=== PATIENT | female | born 1940 | race Caucasian/White ===

== ENCOUNTER 2017-09-23 14:06 | Observation (INO) ==
[2017-09-23] MEDS ORDERED: Aspirin 81 MG TAB.CHEW PO ONE (14:11)
--- NOTE | 2017-09-23 14:32 | Emergency Department Note ---
Disposition Clinical Impression: Chest pain Qualifiers: Chest pain type: unspecified Qualified Code(s): R07.9 - Chest pain, unspecified Disposition: Admitted As Inpatient Condition: Good Referrals: Sherrell Gamez CNP [Primary Care Provider] - Forms: ED Satisfaction Letter General Adult HPI - General Chief complaint: ED Arrhythmia/Palpitations Stated complaint: chest pain Time Seen by Provider: 09/23/17 14:10 Source: EMS Limitations: no limitations Nursing Notes Reviewed: Yes Vital Signs Reviewed: Yes - History of Present Illness HPI Narrative: Patient presents for evaluation of chest pain and palpitations. Patient states she is having down the road when she developed palpitations in her chest. Patient states she has felt like her heart was beating hard. She describes pressure in the center of her chest. She does not have any specific aggravating or alleviating factors. Patient has been resting in a cot without significant improvement in her symptoms. She has hypertension. Patient has not had any recent cardiac workup. Patient allergy to aspirin is upset stomach. She did take aspirin if she eats food. Aspirin was given in the emergency department as well as nitroglycerin. Pain Scale: 6 - Related Data Home Medications Medication Instructions Recorded Confirmed Lisinopril 02/25/15 Previous Rx's Medication Instructions Recorded Phenazopyridine HCl [Pyridium] 200 mg PO TIDAC #6 tab 02/25/15 Sulfamethoxazole/Trimeth DS 1 each PO BID #14 tablet 02/25/15 [Bactrim DS] Allergies Allergy/AdvReac Type Severity Reaction Status Date / Time codeine AdvReac See Verified 12/02/14 09:51 Comments prednisone AdvReac See Verified 12/02/14 09:51 Comments Dyizpba-Tku-Tck Reductase AdvReac See Verified 12/02/14 09:51 Inhibitor Comments [Statins] Review of Systems: CONSTITUTIONAL: No weight loss, fever, chills, weakness or fatigue. HEENT: Eyes: No visual changes. Ears, Nose, Throat: No hearing loss, difficulty talking or unable to swallow. SKIN: No rash or itching. CARDIOVASCULAR: No chest pain and palpitations RESPIRATORY: No shortness of breath, cough or sputum. GASTROINTESTINAL: No anorexia, nausea, vomiting or diarrhea. No abdominal pain or blood. GENITOURINARY: No burning on urination or hematuria. NEUROLOGICAL: No headache, dizziness, syncope, paralysis, ataxia, numbness or tingling in the extremities. No change in bowel or bladder control. MUSCULOSKELETAL: No muscle pain, back pain, joint pain or stiffness. Past Medical History - Past Medical History Medical history: Reports: non-contributory, hypertension, migraine Psychiatric history: Reports: no psych history - Social History Smoking Status: Never smoker Smokeless Tobacco Status: No Alcohol use: Reports: none Drug use: Reports: none Physical Exam General: Well appearing, nontoxic, no acute distress Head: Normocephalic Atraumatic Eyes: PERRL, EOMI ENT: Airway patent, no stridor Neck: supple, no meningismus Chest: Lungs clear to auscultation bilateral Cardiac: Regular rate and rhythm, no murmurs, rubs or gallops Abdomen: soft, nontender, nondistended; no guarding, rebound, or tenderness to percussion Musculoskeletal: Calves symmetric, nontender, no palpable cord Skin: No rash, normal skin tone Neuro: Alert and Oriented to person, place, and time; No focal deficit - General Limitations: no limitations General appearance: alert Course - Reevaluation(s) Reevaluation #1: Patient with mild improvement with pain with nitroglycerin. EKG and troponin are normal. Patient will given Nitropaste as well as Tylenol and reevaluated. Patient will be admitted to the hospital service for further evaluation. - Consultations Consultation #1: Discussed with hospitalist. Patient accepted for admission. Vital Signs Temperature 98.2 F 09/23/17 14:10 Pulse Rate 84 09/23/17 14:10 Respiratory Rate 16 09/23/17 14:10 Blood Pressure 167/82 09/23/17 14:10 O2 Sat by Pulse Oximetry 96 09/23/17 14:10 Temperature 98.2 F 09/23/17 14:10 Pulse Rate 85 09/23/17 15:13 Respiratory Rate 16 09/23/17 15:13 Blood Pressure 148/85 09/23/17 15:13 O2 Sat by Pulse Oximetry 97 09/23/17 14:56 Oxygen Delivery Oxygen Delivery Room Air Medical Decision Making - Medical Records Medical records reviewed: Yes I reviewed the patient's medical records. - Lab Data Lab results reviewed: Yes I reviewed the patient's lab results. Result diagrams: 09/23/17 14:26 09/23/17 14:26 Lab Results 07/12/0309/23/17 09/23/17 Range/Units 14:26 14:26 14:26 WBC 4.7 (4.3-11.1) K/mcL RBC 4.37 (3.82-4.97) M/mcL Hgb 13.3 (11.5-15.4) g/dL Hct 39.7 (35.3-44.9) % MCV 90.8 (83.0-100.0) fL MCH 30.4 (28.0-33.3) pg MCHC 33.5 (31.6-35.5) g/dL RDW 12.9 (11.5-14.5) % Plt Count 185 (140-400) K/mcL MPV 10.1 (9.4-12.4) fL Immature Gran % 0.2 (0-4) % Seg Neutrophils % 69.1 % Lymphocytes % 17.4 % Monocytes % 10.3 % Eosinophils % 2.1 % Basophils % 0.9 % Neutrophils # 3.2 (1.6-8.9) K/mcL Lymphocytes # 0.8 (0.6-4.6) K/mcL Monocytes # 0.5 (0.0-1.3) K/mcL Eosinophils # 0.1 (0.0-0.6) K/mcL Basophils # 0.0 (0.0-0.2) K/mcL PT 11.0 (9.4-12.1) Seconds INR 1.0 APTT 28.6 (26.0-36.0) Seconds Sodium (136-145) mEq/L Potassium (3.5-5.1) mEq/L Chloride (98-107) mEq/L Carbon Dioxide (23-29) mEq/L BUN (8-23) mg/dL Creatinine (0.60-1.20) mg/dL Est GFR ( Amer) (> 60) Est GFR (Non-Af Amer) (> 60) BUN/Creatinine Ratio (6-26) Glucose (70-105) mg/dL Calculated Osmolality (280-300) Calcium (8.6-10.3) mg/dL Magnesium (1.6-2.6) mg/dL Troponin I (< 0.04) ng/mL B-Natriuretic Peptide 35 (Less than 100) pg/mL TSH (0.340-5.600) mcIU/mL 09/23/17 Range/Units 14:26 WBC (4.3-11.1) K/mcL RBC (3.82-4.97) M/mcL Hgb (11.5-15.4) g/dL Hct (35.3-44.9) % MCV (83.0-100.0) fL MCH (28.0-33.3) pg MCHC (31.6-35.5) g/dL RDW (11.5-14.5) % Plt Count (140-400) K/mcL MPV (9.4-12.4) fL Immature Gran % (0-4) % Seg Neutrophils % % Lymphocytes % % Monocytes % % Eosinophils % % Basophils % % Neutrophils # (1.6-8.9) K/mcL Lymphocytes # (0.6-4.6) K/mcL Monocytes # (0.0-1.3) K/mcL Eosinophils # (0.0-0.6) K/mcL Basophils # (0.0-0.2) K/mcL PT (9.4-12.1) Seconds INR APTT (26.0-36.0) Seconds Sodium 139 (136-145) mEq/L Potassium 4.5 (3.5-5.1) mEq/L Chloride 107 (98-107) mEq/L Carbon Dioxide 26 (23-29) mEq/L BUN 16 (8-23) mg/dL Creatinine 0.80 (0.60-1.20) mg/dL Est GFR ( Amer) > 60 (> 60) Est GFR (Non-Af Amer) > 60 (> 60) BUN/Creatinine Ratio 20 (6-26) Glucose 107 H (70-105) mg/dL Calculated Osmolality 290 (280-300) Calcium 9.3 (8.6-10.3) mg/dL Magnesium 2.2 (1.6-2.6) mg/dL Troponin I < 0.03 (< 0.04) ng/mL B-Natriuretic Peptide (Less than 100) pg/mL TSH 1.089 (0.340-5.600) mcIU/mL - Radiology Data Radiology results reviewed: Yes I reviewed the patient's radiology results. - EKG Data EKG #1 EKG attestation: Yes I reviewed and interpreted this EKG. EKG results narrative: EKG shows sinus rhythm with ventricular rate of 76. SD interval 142. QRS 90. QTC 419. Patient has no ST elevations or depressions. No previous EKG for comparison.
[2017-09-23 14:39] LABS: Basophils % 0.9 %; Eosinophils # 0.1 K/mcL (0.0-0.6); Eosinophils % 2.1 %; Hematocrit 39.7 % (35.3-44.9); Hemoglobin 13.3 g/dL (11.5-15.4); Immature Granulocytes % 0.2 % (0-4); Lymphocytes # 0.8 K/mcL (0.6-4.6); Lymphocytes % 17.4 %; Mean Corpuscular HGB Conc 33.5 g/dL (31.6-35.5); Mean Corpuscular Hemoglobin 30.4 pg (28.0-33.3); Mean Corpuscular Volume 90.8 fL (83.0-100.0); Mean Platelet Volume 10.1 fL (9.4-12.4); Monocytes # 0.5 K/mcL (0.0-1.3); Monocytes % 10.3 %; Neutrophils # 3.2 K/mcL (1.6-8.9); Platelet Count 185 K/mcL (140-400); Red Blood Count 4.37 M/mcL (3.82-4.97); Red Cell Distribution Width 12.9 % (11.5-14.5); Segmented Neutrophils % 69.1 %
[2017-09-23 14:51] LABS: Activated Partial Thrombo Time 28.6 Seconds (26.0-36.0)
[2017-09-23] MEDS ORDERED: Nitroglycerin 0.4 MG TAB.SUBL SL PRN (14:58)
[2017-09-23 14:59] LABS: Troponin I < 0.03 ng/mL (< 0.04)
[2017-09-23 15:08] LABS: BUN/Creatinine Ratio 20 (6-26); Blood Urea Nitrogen 16 mg/dL (8-23); Calcium 9.3 mg/dL (8.6-10.3); Carbon Dioxide 26 mEq/L (23-29); Chloride 107 mEq/L (98-107); Glucose 107 mg/dL (70-105); Magnesium 2.2 mg/dL (1.6-2.6); Osmolality,Calculated 290 (280-300); Potassium 4.5 mEq/L (3.5-5.1); Sodium 139 mEq/L (136-145); eGFR For African Americans > 60 (> 60); eGFR For Non-African Americans > 60 (> 60)
[2017-09-23 15:13] LABS: Thyroid Stimulating Hormone 1.089 mcIU/mL (0.340-5.600)
[2017-09-23] MEDS ORDERED: Nitroglycerin 1 INCH/GM PACKET TP ONE (15:21)
--- NOTE | 2017-09-23 16:13 | Internal Med History&Physical ---
Date of Encounter: 09/23/17 Time of Encounter: 16:13 Internal Medicine - H&P: HPI Chief complaint: CP History of present illness: Ms. Moore is a 76 year old female presents for evaluation of chest pain and palpitations she felt as if her heart felt was beating hard associated with pressure-like midsternal chest pain with no radiation and no aggravating or alleviating factors. She has history of hypertension that as per her is very well controlled. Patient has not had any recent cardiac workup. She has no prior history of coronary artery disease. She also denies any prior history of similar episode of palpitations, she was evaluated by the ER staff and his troponin were negative and her EKG shows no significant ST-T wave changes, family at bedside with very concerned about her new onset palpitation as well as chest pain, the patient was admitted for further evaluation and management. Past Med Surg Social Fam HX - Past Medical History Medical history: non-contributory, hypertension, migraine Psychiatric history: no psych history - Social History Smoking Status: Never smoker Smokeless Tobacco Status: No Alcohol use: none Drug use: none - Family History Mother Living Status: Age at : 94 Cause of : cancer Father Living Status: Age at : 59 Cause of : gallstones into pancreas Internal Medicine - H&P: Meds Acetaminophen/Butalbital/Caffe [Fioricet] 1 each PO Q4H PRN 09/23/17 [History] Lisinopril 30 mg PO DAILY 09/23/17 [History] Montelukast [Singulair] 10 mg PO DAILY 09/23/17 [History] Omeprazole [PriLOSEC] 20 mg PO DAILY 09/23/17 [History] 3 Allergy/AdvReac Type Severity Reaction Status Date / Time codeine AdvReac See Verified 12/02/14 09:51 Comments prednisone AdvReac See Verified 12/02/14 09:51 Comments Wljpowa-Ixl-Cjc Reductase AdvReac See Verified 12/02/14 09:51 Inhibitor Comments [Statins] All Systems PM: A 10-system review of systems was performed and is negative for pertinent findings except as documented above in the HPI. - Constitutional Constitutional: no chills, no fever(s), no night sweats - Cardiovascular Cardiovascular ROS IM: chest pain, palpitations, no diaphoresis, no dyspnea, no lightheadedness, no syncope - Respiratory Respiratory: no cough, no dyspnea, no wheezing, no excessive phlegm production - Gastrointestinal Gastrointestinal: no abdominal pain, no diarrhea, no hematemesis, no hematochezia, no melena, no nausea, no vomiting - Neurological Neurological ROS: no confusion, no convulsions, no focal weakness, no numbness, no tingling, no tremor(s) - Constitutional Vitals: Temp Pulse Resp BP Pulse Ox 98.2 F 85 16 148/85 97 09/23/17 14:10 09/23/17 15:13 09/23/17 15:13 09/23/17 15:13 09/23/17 14:56 General appearance: Present: A&O X 3 - Head Head exam: Present: atraumatic, normocephalic - Neck Neck exam general surgery: Present: supple, trachea midline. Absent: lymphadenopathy - Respiratory Respiratory exam: Present: CTAB. Absent: accessory muscle use, rales, rhonchi, wheezes - Cardiovascular Cardiovascular exam: Present: RRR, +S1, +S2. Absent: diastolic murmur, gallop, rubs, systolic murmur - GI/Abdominal GI/Abdominal exam: Present: normal bowel sounds, soft, no peritoneal signs. Absent: distended, tenderness - Extremities Exam Extremities exam: Present: warm, radial pulses palpable and symmetrical. Absent : calf tenderness, cyanotic, pedal edema Internal Med - H&P Results - Labs CBC & Chem 7: 09/24/17 03:39 09/24/17 03:39 Labs: Short CBC 09/23/17 Range/Units 14:26 WBC 4.7 (4.3-11.1) K/mcL Hgb 13.3 (11.5-15.4) g/dL Hct 39.7 (35.3-44.9) % Plt Count 185 (140-400) K/mcL Neutrophils # 3.2 (1.6-8.9) K/mcL BMP 09/23/17 14:26 Sodium 139 Potassium 4.5 Chloride 107 Carbon Dioxide 26 BUN 16 Creatinine 0.80 Glucose 107 H Calcium 9.3 Cardiac Enzymes 09/23/17 Range/Units 14:26 Troponin I < 0.03 (< 0.04) ng/mL - Impressions ITS Impressions Chest X-Ray 09/23/17 14:11 IMPRESSION: No acute process. D/ / Carlos Bejarano MD / Carlos Bejarano MD Interpreting Provider: Carlos Bejarano MD - Assessment and plan (1) Chest pain Current Visit: Yes Status: Acute Assessment and plan: ASSESSMENT: - Chest pain DD *CAD *Muskuloskeletal CP - myofascial strain, costochondritis *GERD *Esophageal spasm PLAN: - cardiac enzymes x 2 q 8 hr - EKG now and in AM - ASA - O2 by NC to keep SpO2 greater than 92% - UA - Urine toxic screen - CBCD, BMP in AM - Fasting lipids - Tylenol 650 mg PO q 4-6 hr PRN headache - Home meds (check list) - Heparin 5000 U SQ BID - 2D Echo - Cardiology consult Qualifiers: Chest pain type: unspecified Qualified Code(s): R07.9 - Chest pain, unspecified (2) Palpitation Current Visit: Yes Status: Acute Assessment and plan: The patient reported that since her new onset palpitation, has no further episodes, will place patient on telemetry for monitoring and consult cardiology for further evaluation and management (3) Hypertension Current Visit: Yes Status: Acute Assessment and plan: Continue home medication and adjust regimen if indicated Qualifiers: Qualified Code(s): I10 - Essential (primary) hypertension (4) DVT prophylaxis Current Visit: Yes Status: Acute Assessment and plan: The patient is ambulatory we will place a SCDs - Time Spent With Patient Total time spent is greater than 50% in coordination of care (as documented) at patient's floor/unit and/or counseling patient:
[2017-09-23] MEDS ORDERED: Naloxone 0.4 MG/ML INJ IVP PRN (20:45)
[2017-09-23] MEDS ORDERED: Acetaminophen/Butalbital/CaffeineTABLET PO PRN (20:50)
[2017-09-23] MEDS: traMADol 50 MG TABLET PO PRN (22:06)
[2017-09-24] MEDS ORDERED: Metoclopramide 10 MG/2 ML VIAL IVP ONE (00:32)
[2017-09-24] MEDS: Acetaminophen 325 MG TABLET PO PRN ×2 (01:21→10:27)
[2017-09-24 04:35] LABS: Bilirubin,Urine Negative (Negative); Blood,Urine Negative (Negative); Clarity,Urine Clear (Clear); Color,Urine Yellow (Yellow); Glucose,Urine (UA) Normal (Normal); Ketones,Urine Negative (Negative); Leukocyte Esterase,Urine Moderate (Negative); Nitrite,Urine Negative (Negative); Protein,Urine Negative (Neg-Trace); Specific Gravity,Urine 1.026 (1.010-1.025); Urobilinogen,Urine Normal (Normal)
[2017-09-24] MEDS: traMADol 50 MG TABLET PO PRN (04:35)
[2017-09-24 04:38] LABS: Hyaline Casts,Urine Few per lpf (None-Few); Squamous Epithelial Cell,Urine Many per lpf (None-Few); WBC,Urine 15-30 per hpf (0-3)
[2017-09-24 04:50] LABS: Hematocrit 36.2 % (35.3-44.9); Hemoglobin 12.2 g/dL (11.5-15.4); Mean Corpuscular HGB Conc 33.7 g/dL (31.6-35.5); Mean Corpuscular Hemoglobin 31.2 pg (28.0-33.3); Mean Corpuscular Volume 92.6 fL (83.0-100.0); Mean Platelet Volume 10.7 fL (9.4-12.4); Platelet Count 169 K/mcL (140-400); Red Blood Count 3.91 M/mcL (3.82-4.97); Red Cell Distribution Width 12.9 % (11.5-14.5)
[2017-09-24 05:02] LABS: Prothrombin Time 11.3 Seconds (9.4-12.1)
[2017-09-24 05:04] LABS: Activated Partial Thrombo Time 27.8 Seconds (26.0-36.0)
[2017-09-24 05:14] LABS: Alanine Aminotransferase 13 Units/L (7-52); Albumin 3.7 g/dL (3.5-5.7); Albumin/Globulin Ratio 1.9 (1.1-2.2); Alkaline Phosphatase 59 Units/L (34-104); Aspartate Amino Transferase 15 Units/L (13-39); BUN/Creatinine Ratio 23 (6-26); Bilirubin,Total 0.4 mg/dL (0.3-1.0); Blood Urea Nitrogen 19 mg/dL (8-23); Calcium 8.9 mg/dL (8.6-10.3); Carbon Dioxide 26 mEq/L (23-29); Chloride 108 mEq/L (98-107); Chol/HDL Ratio 5.8 (0-4.9); Cholesterol 266 mg/dL (< 200); Glucose 75 mg/dL (70-105); HDL Cholesterol 46 mg/dL (40-59); LDL Cholesterol,Calculated 195 mg/dL (0-99); Magnesium 2.3 mg/dL (1.6-2.6); Osmolality,Calculated 287 (280-300); Phosphorous 3.6 mg/dL (2.7-4.5); Potassium 3.9 mEq/L (3.5-5.1); Sodium 138 mEq/L (136-145); Total Protein 5.7 g/dL (6.4-8.9); Triglycerides 126 mg/dL (< 150); eGFR For African Americans > 60 (> 60); eGFR For Non-African Americans > 60 (> 60)
[2017-09-24 05:19] LABS: Bacteria,Urine Few per hpf (None-Few); Mucus,Urine Many (Few); RBC,Urine 0-3 per hpf (0-3)
--- NOTE | 2017-09-24 07:29 | Electrocardiograph Report ---
[address] [place], [place] [address] Test Date: 2017-09-23 Pat Name: Jose Antonio Moore Department: 102 Room: 3B33 Gender: F [employer]: : [id number] Requested By: [id number] Order Number: [id number] Reading MD: Mick Ziegler Measurements Intervals [place] Rate: 76 P: 48 HI: 142 QRS: -33 QRSD: 90 T: 53 QT: 389 QTc: 419 Interpretive Statements SINUS RHYTHM MARKED LEFT AXIS DEVIATION LEFT VENTRICULAR HYPERTROPHY Electronically Signed On 09-24-2017 7:27:47 EDT by Mick Ziegler
[2017-09-24] MEDS: Ondansetron 4 MG/2 ML VIAL IVP PRN (09:31)
[2017-09-24] MEDS: Lisinopril 20 MG TABLET PO SCH (09:34)
--- NOTE | 2017-09-24 10:37 | Internal Med Progress Note ---
Date of Encounter: 09/25/17 Time of Encounter: 10:37 - Assessment and plan (1) Chest pain Current Visit: Yes Status: Acute Assessment and plan: No further episode of CP, Cardiac enzymes are negative. For stress test in AM. Qualifiers: Chest pain type: unspecified Qualified Code(s): R07.9 - Chest pain, unspecified (2) Palpitation Current Visit: Yes Status: Acute Assessment and plan: The patient reported that since her new onset palpitation, has no further episodes, continue telemetry for monitoring. Awaiting cardiology for further evaluation and management. (3) Hypertension Current Visit: Yes Status: Acute Assessment and plan: Continue home medication and adjust regimen if indicated Qualifiers: Hypertension type: essential hypertension Qualified Code(s): I10 - Essential (primary) hypertension (4) DVT prophylaxis Current Visit: Yes Status: Acute Assessment and plan: The patient is ambulatory we will place a SCDs - Time Spent With Patient Total time spent is greater than 50% in coordination of care (as documented) at patient's floor/unit and/or counseling patient: - Subjective Interval history: SHe is comfortable, denies CP and palpitation. - Constitutional Vitals: Temp Pulse Resp BP Pulse Ox 97.8 F 61 16 120/66 97 09/24/17 07:49 09/24/17 07:49 09/24/17 07:49 09/24/17 07:49 09/24/17 07:49 General appearance: Present: A&O X 3 - Head Head exam: Present: atraumatic, normocephalic - Neck Neck exam general surgery: Present: supple, trachea midline. Absent: lymphadenopathy - Respiratory Respiratory exam: Present: CTAB. Absent: accessory muscle use, rales, rhonchi, wheezes - Cardiovascular Cardiovascular exam: Present: RRR, +S1, +S2. Absent: diastolic murmur, gallop, rubs, systolic murmur - GI/Abdominal GI/Abdominal exam: Present: normal bowel sounds, soft, no peritoneal signs. Absent: distended, tenderness - Extremities Exam Extremities exam: Present: warm, radial pulses palpable and symmetrical. Absent : calf tenderness, cyanotic, pedal edema Internal Medicine: Result - Labs CBC & Chem 7: 09/24/17 03:39 09/24/17 03:39 Labs: Short CBC 09/24/17 Range/Units 03:39 WBC 5.2 (4.3-11.1) K/mcL Hgb 12.2 (11.5-15.4) g/dL Hct 36.2 (35.3-44.9) % Plt Count 169 (140-400) K/mcL BMP 09/24/17 03:39 Sodium 138 Potassium 3.9 Chloride 108 H Carbon Dioxide 26 BUN 19 Creatinine 0.82 Glucose 75 Calcium 8.9 Cardiac Enzymes 09/23/17 09/24/17 09/24/17 Range/Units 21:06 03:39 09:13 Troponin I < 0.03 < 0.03 < 0.03 (< 0.04) ng/mL Liver Function 09/24/17 Range/Units 03:39 Total Bilirubin 0.4 (0.3-1.0) mg/dL AST 15 (13-39) Units/L ALT 13 (7-52) Units/L Alkaline Phosphatase 59 (34-104) Units/L Albumin 3.7 (3.5-5.7) g/dL Urine 09/24/17 Range/Units 04:25 Urine Color Yellow (Yellow) Urine Clarity Clear (Clear) Urine pH 6.0 (5.0-8.0) pH Units Ur Specific [place] 1.026 H (1.010-1.025) Urine Protein Negative (Neg-Trace) mg/dL Urine Glucose (UA) Normal (Normal) mg/dL - ABG Interpretation ABG results: PT/INR, D-dimer PT 11.3 Seconds (9.4-12.1) 09/24/17 03:39 Consult Discharge Plan - Plan Referrals: Sherrell Gamez CNP [Primary Care Provider] - 09/30/17 10:35 am
--- NOTE | 2017-09-24 12:24 | Cardiology Consult Note ---
<Fortino Hoang R - Last Filed: 09/24/17 12:24> Date of Encounter: 09/24/17 Time of Encounter: 12:23 Assessment and Plan (1) Palpitation Current Visit: Yes Status: Acute Presented with acute onset of palpitations. EKGs sinus rhythm. EKG today does show diffuse ST flattening. Troponins negative. Denies chest pain. States she had an episode of chest pain 1-2 years ago with negative stress test at [facility] at that time. Records requested. TTE ordered, not yet completed. Telemetry reviewed--12 hr AVG HR 59, SR, no signficant pauses or arrhythmias noted. Discussed and reviewed with Dr. Tariq, recommends stress test in AM--will order. Further recs pending echo and stress results. (2) Hypertension Current Visit: Yes Status: Acute Well controlled on Lisinopril. Qualifiers: Hypertension type: essential hypertension Qualified Code(s): I10 - Essential (primary) hypertension Discussion w patient/family: The assessment and plan as outlined above was discussed with the patient and/or family members who expressed understanding and agreement. All questions were answered. Thank you for involving us in the care of your patient. Please call with any questions. I will discuss all the above with Dr. Tariq and make changes as necessary. History of Present Illness Consult date: 09/24/17 Requesting physician: Najma Dennison Consult reason: chest pain, palpitations Chief complaint: palpitations History of present illness: Ms. Moore is a 76 year old female with PMH of HTN that presented to ED for acute onset of palpitations. She reports this occurred while driving. I specifically asked pt about any chest pain and she denied any, states only palpitations. She states she had an episode of chest pain 1-2 years ago and had a stress test at [facility] at that time, reportedly negative. EKGs reviewed, SR. Troponins negative. She states after she was given nitro that her palpitations resolved, no recurrence. Currently has headache and nausea. Cardiology consulted for further recs. TTE has been ordered, not yet completed. She denies fatigue, dyspnea, chest pain or LE edema. Past Med Surg Social Fam HX - Past Medical History Medical history: non-contributory, hypertension, migraine Psychiatric history: no psych history - Past Surgical History Surgical History: hysterectomy Additional surgical history: right rotater cuff x2 - Social History Smoking Status: Never smoker Smokeless Tobacco Status: No Alcohol use: none Drug use: none - Family History Mother Living Status: Age at : 94 Cause of : cancer Father Living Status: Age at : 59 Cause of : gallstones into pancreas Medications and Allergies Acetaminophen/Butalbital/Caffe [Fioricet] 1 each PO Q4H PRN 09/23/17 [History] Lisinopril 30 mg PO DAILY 09/23/17 [History] Montelukast [Singulair] 10 mg PO DAILY 09/23/17 [History] Omeprazole [PriLOSEC] 20 mg PO DAILY 09/23/17 [History] 3 Allergy/AdvReac Type Severity Reaction Status Date / Time codeine AdvReac See Verified 12/02/14 09:51 Comments prednisone AdvReac See Verified 12/02/14 09:51 Comments Hthlkur-Fpp-Kfe Reductase AdvReac See Verified 12/02/14 09:51 Inhibitor Comments [Statins] All Systems Review: The remainder of the systems were reviewed and are negative - Cardiovascular Cardiovascular: as per HPI, palpitations Physical Examination Vital Signs, Last 4 Hours Temp Pulse Resp BP Pulse Ox 09/24/17 11:35 97.5 F L 64 16 143/75 96 Vital Signs Temp Pulse Resp BP Pulse Ox 09/24/17 11:35 97.5 F L 64 16 143/75 96 09/24/17 07:49 97.8 F 61 16 120/66 97 09/24/17 03:37 97.8 F 61 14 116/68 95 09/23/17 23:10 97.8 F 80 15 118/70 96 09/23/17 20:36 98.2 F 66 14 123/73 97 09/23/17 19:09 66 12 98/62 93 09/23/17 16:30 71 16 119/75 95 09/23/17 15:13 85 16 148/85 09/23/17 14:56 97 09/23/17 14:10 98.2 F 84 16 167/82 96 Intake and Output 09/23/17 09/24/17 09/24/17 23:59 07:59 15:59 Other: Meal Breakfast Percent of Meal Consumed 0% Weight 66.9 kg 71.1 kg Patient Weight 09/24/17 23:59 Weight 71.1 kg General: Conversant, No Apparent Distress HEENT: Atraumatic, Normocephaly, Mucus Membranes Moist Neck: No JVD, Normal carotid pulses Cardiac: Reg Rate and Rhythm, Normal S1 and S2, No Murmur Lungs: Normal Breath Sounds, No Wheeze, Rales, Rhonchi Neuro: Alert and responsive, No focal deficits noted Abdomen: Soft, Non-Tender Skin: No rashes noted on visualized skin Musculoskeletal: No Chest Wall Tenderness Extremities: No Clubbing, No Cyanosis, No Edema, Normal Pulses Results 09/24/17 03:39 09/24/17 03:39 Lab Results 09/23/17 09/24/17 09/24/17 21:06 03:39 03:39 WBC 5.2 Hgb 12.2 Hct 36.2 Plt Count 169 INR APTT Sodium Potassium Chloride Carbon Dioxide BUN Creatinine Glucose Calcium Magnesium Total Bilirubin AST ALT Alkaline Phosphatase Troponin I < 0.03 < 0.03 B-Natriuretic Peptide 09/24/17 09/24/17 09/24/17 03:39 03:39 03:39 WBC Hgb Hct Plt Count INR 1.0 APTT 27.8 Sodium 138 Potassium 3.9 Chloride 108 H Carbon Dioxide 26 BUN 19 Creatinine 0.82 Glucose 75 Calcium 8.9 Magnesium 2.3 Total Bilirubin 0.4 AST 15 ALT 13 Alkaline Phosphatase 59 Troponin I B-Natriuretic Peptide 26 09/24/17 09:13 WBC Hgb Hct Plt Count INR APTT Sodium Potassium Chloride Carbon Dioxide BUN Creatinine Glucose Calcium Magnesium Total Bilirubin AST ALT Alkaline Phosphatase Troponin I < 0.03 B-Natriuretic Peptide Short CBC 09/24/17 09/23/17 Range/Units 03:39 14:26 WBC 5.2 4.7 (4.3-11.1) K/mcL Hgb 12.2 13.3 (11.5-15.4) g/dL Hct 36.2 39.7 (35.3-44.9) % Plt Count 169 185 (140-400) K/mcL Neutrophils # 3.2 (1.6-8.9) K/mcL BMP 09/24/17 09/23/17 Range/Units 03:39 14:26 Sodium 138 139 (136-145) mEq/L Potassium 3.9 4.5 (3.5-5.1) mEq/L Chloride 108 H 107 (98-107) mEq/L Carbon Dioxide 26 26 (23-29) mEq/L BUN 19 16 (8-23) mg/dL Creatinine 0.82 0.80 (0.60-1.20) mg/dL Glucose 75 107 H (70-105) mg/dL Calcium 8.9 9.3 (8.6-10.3) mg/dL Cardiac Enzymes 09/24/17 09/24/17 09/23/17 Range/Units 09:13 03:39 21:06 Troponin I < 0.03 < 0.03 < 0.03 (< 0.04) ng/mL 09/23/17 Range/Units 14:26 Troponin I < 0.03 (< 0.04) ng/mL Liver Function 09/24/17 Range/Units 03:39 Total Bilirubin 0.4 (0.3-1.0) mg/dL AST 15 (13-39) Units/L ALT 13 (7-52) Units/L Alkaline Phosphatase 59 (34-104) Units/L Albumin 3.7 (3.5-5.7) g/dL Urine 09/24/17 Range/Units 04:25 Urine Color Yellow (Yellow) Urine Clarity Clear (Clear) Urine pH 6.0 (5.0-8.0) pH Units Ur Specific [place] 1.026 H (1.010-1.025) Urine Protein Negative (Neg-Trace) mg/dL Urine Glucose (UA) Normal (Normal) mg/dL Impressions Chest X-Ray 09/23/17 14:11 IMPRESSION: No acute process. D/ / Carlos Bejarano MD / Carlos Bejarano MD Interpreting Provider: Carlos Bejarano MD Active Medications Acetaminophen (Tylenol) 650 mg PO Q6HR PRN PRN Reason: Mild Pain/Fever Stop: 03/25/18 20:46 Last Admin: 09/24/17 10:27 Dose: 650 mg Acetaminophen/Butalbital/Caffeine (Fioricet) 1 each PO Q4H PRN; Protocol PRN Reason: Migraine Headache Stop: 03/25/18 20:51 Last Admin: 09/24/17 12:12 Dose: 1 each Lisinopril (Zestril) 30 mg PO DAILY [facility] Stop: 03/26/18 09:01 Last Admin: 09/24/17 09:34 Dose: Not Given Montelukast Sodium (Singulair) 10 mg PO DAILY [facility] Stop: 03/26/18 09:01 Last Admin: 09/24/17 09:31 Dose: Not Given Naloxone HCl (Narcan) 0.4 mg IVP Q2MIN PRN PRN Reason: SEE COMMENTS Stop: 03/25/18 20:46 Nitroglycerin (Nitroglycerin) 0.4 mg SL Q5MIN PRN PRN Reason: Chest Pain Stop: 03/25/18 14:59 Last Admin: 09/23/17 15:05 Dose: 0.4 mg Omeprazole (Prilosec) 20 mg PO DAILY [facility] PRN Reason: Protocol Stop: 03/26/18 09:01 Last Admin: 09/24/17 09:30 Dose: Not Given Ondansetron HCl (Zofran) 4 mg IVP Q8HR PRN PRN Reason: Nausea And Vomiting Stop: 03/25/18 20:46 Last Admin: 09/24/17 09:31 Dose: 4 mg Tramadol HCl (Ultram) 50 mg PO Q6HR PRN PRN Reason: Moderate Pain Stop: 03/25/18 20:46 Last Admin: 09/24/17 04:35 Dose: 50 mg - EKG Interpretation EKG results cardiology: personally reviewed (SR), other (12 hr tele AVG HR 59, SR, no significant pauses or arrhythmias.) Consult Discharge Plan - Plan Referrals: Sherrell Gamez, [employer] [Primary Care Provider] - <Mariah Tariq - Last Filed: 09/24/17 14:19> Date of Encounter: 09/24/17 - Attending Attestation I have personally performed a face to face evaluation on this patient. I have reviewed and agree with the care plan. History and Exam by me shows: 76-year-old female presents to the emergency department with palpitations. She denies any chest pain has been seen in the past for similar episodes described as a fluttering in her chest. These episodes last a few seconds at a time however most recent episode continued and was persistent for follow-up. Time up until presenting to the emergency department. Mild ST changes on her EKG however no ectopy noted. With her EKG changes and her most recent stress test at an outside hospital almost 2 years ago it does seem reasonable to evaluate for ischemia with a chemical stress test. Assessment and Plan Discussion w patient/family: The assessment and plan as outlined above was discussed with the patient and/or family members who expressed understanding and agreement. All questions were answered. Thank you for involving us in the care of your patient. Please call with any questions. History of Present Illness History of present illness: Ms. Moore is a 76 year old female All Systems Review: The remainder of the systems were reviewed and are negative Physical Examination Vital Signs, Last 4 Hours Temp Pulse Resp BP Pulse Ox 09/24/17 11:35 97.5 F L 64 16 143/75 96 Results 09/24/17 03:39 09/24/17 03:39 Lab Results 09/23/17 09/24/17 09/24/17 21:06 03:39 03:39 WBC 5.2 Hgb 12.2 Hct 36.2 Plt Count 169 INR APTT Sodium Potassium Chloride Carbon Dioxide BUN Creatinine Glucose Calcium Magnesium Total Bilirubin AST ALT Alkaline Phosphatase Troponin I < 0.03 < 0.03 B-Natriuretic Peptide 09/24/17 09/24/17 09/24/17 03:39 03:39 03:39 WBC Hgb Hct Plt Count INR 1.0 APTT 27.8 Sodium 138 Potassium 3.9 Chloride 108 H Carbon Dioxide 26 BUN 19 Creatinine 0.82 Glucose 75 Calcium 8.9 Magnesium 2.3 Total Bilirubin 0.4 AST 15 ALT 13 Alkaline Phosphatase 59 Troponin I B-Natriuretic Peptide 26 09/24/17 09:13 WBC Hgb Hct Plt Count INR APTT Sodium Potassium Chloride Carbon Dioxide BUN Creatinine Glucose Calcium Magnesium Total Bilirubin AST ALT Alkaline Phosphatase Troponin I < 0.03 B-Natriuretic Peptide
[2017-09-25] MEDS: traMADol 50 MG TABLET PO PRN (03:55)
[2017-09-25] MEDS ORDERED: Regadenoson 0.4 MG/5 ML SYRINGE IVP ONE (05:27)
[2017-09-25] MEDS: Lisinopril 20 MG TABLET PO SCH (10:10)
[2017-09-25] MEDS: Ondansetron 4 MG/2 ML VIAL IVP PRN (10:11)
[2017-09-25 11:24] VITALS: BP 151/78
--- NOTE | 2017-09-25 13:19 | Cardiology Progress Note ---
Date of Encounter: 09/25/17 Time of Encounter: 13:16 Assessment and Plan (1) Palpitation Current Visit: Yes Status: Acute Presented with acute onset of palpitations. EKGs sinus rhythm. EKG yesterday showed diffuse ST flattening. Troponins negative. Telemetry reviewed--12 hr AVG HR 67, SR, no signficant pauses or arrhythmias noted. TTE resulted--LVEF 60-65%. Normal LV chamber size and function. Mild concentric left ventricular hypertrophy. Mild left ventricular diastolic dysfunction. Normal right ventricular structure and function. No evidence of pulmonary hypertension. No significant valvular dysfunction. Pharmacologic Nuclear stress test negative for ischemia or infarct. Gated EF >70 %. Pt denies recurrent palpitations. Denies chest pain. Cardiology signing off. Reconsult PRN. Can follow-up outpt with PCP. (2) Hypertension Current Visit: Yes Status: Acute Continue Lisinopril, adjust as necessary. Qualifiers: Hypertension type: essential hypertension Qualified Code(s): I10 - Essential (primary) hypertension Discussion w patient/family: The assessment and plan as outlined above was discussed with the patient and/or family members who expressed understanding and agreement. All questions were answered. Thank you for involving us in the care of your patient. Please call with any questions. I will discuss all the above with Dr. Tariq and make changes as necessary. Subjective Principal diagnosis: palpitations Interval history: Pt denies chest pain. Denies any recurrent palpitations. Denies dyspnea. Only complaint was n/v after stress test, now resolved. TTE EF preserved. Stress test negative for ischemia or infarct. Objective Vital Signs, Last 4 Hours Temp Pulse Resp BP Pulse Ox 09/25/17 11:24 97.6 F 61 18 151/78 98 09/25/17 09:29 97.8 F 69 18 153/81 98 Vital Signs Temp Pulse Resp BP Pulse Ox 09/25/17 11:24 97.6 F 61 18 151/78 98 09/25/17 09:29 97.8 F 69 18 153/81 98 09/25/17 02:27 98.5 F 73 14 130/77 97 09/24/17 22:55 97.7 F 71 14 125/74 96 09/24/17 15:29 97.5 F L 62 16 144/82 95 Intake and Output 09/24/17 09/25/1709/25/18 23:59 07:59 15:59 Output Total 400 / 400 Balance -400 / -400 Output: Urine 400 / 400 General: Conversant, No Apparent Distress HEENT: Atraumatic, Normocephaly, Mucus Membranes Moist Neck: No JVD, Normal carotid pulses Cardiac: Reg Rate and Rhythm, Normal S1 and S2, No Murmur Lungs: Normal Breath Sounds, No Wheeze, Rales, Rhonchi Neuro: Alert and responsive, No focal deficits noted Abdomen: Soft, Non-Tender Skin: No rashes noted on visualized skin Musculoskeletal: No Chest Wall Tenderness Extremities: No Clubbing, No Cyanosis, No Edema, Normal Pulses Results 09/24/17 03:39 09/24/17 03:39 Impressions Echocardiogram 09/24/17 02:25 Impressions: LVEF 60-65%. Normal LV chamber size and function. Mild concentric left ventricular hypertrophy. Mild left ventricular diastolic dysfunction. Normal right ventricular structure and function. No evidence of pulmonary hypertension. No significant valvular dysfunction. Left Ventricular Wall Motion: Rest Echo Findings All wall segments showed normal motion. Findings: Study Quality * Technically adequate exam. ECG Findings * Normal sinus rhythm. Left Ventricle * LVEF 60-65%. * Normal LV chamber size and function. * Mild concentric left ventricular hypertrophy. * Mild left ventricular diastolic dysfunction. Right Ventricle * Normal right ventricular structure and function. Left Atrium * Normal left atrial size. Right Atrium * Normal right atrial size. Aortic Valve * Trileaflet aortic valve. * Mildly sclerotic aortic valve leaflets. * Trace aortic regurgitation. * No aortic stenosis. Mitral Valve * Mild mitral annular calcification * No mitral regurgitation. * No mitral stenosis. Tricuspid Valve * Normal tricuspid valve structure and function. * Trace tricuspid regurgitation. * No evidence of pulmonary hypertension. Pulmonic Valve * Normal pulmonic valve structure and function. * No pulmonic regurgitation. Aorta * Normally sized aortic root. Pericardium * The pericardium appears normal. IVC * Normal IVC dimensions and inspiratory collapse. Pulmonary Artery * Normal visualized portions of the main pulmonary artery. - Imaging and Cardiology Stress Test: report reviewed Echo: report reviewed - EKG Interpretation EKG results cardiology: other (12 hr tele AVG HR 67, SR, no significant pauses or arrhythmias noted.) Consult Discharge Plan - Plan Referrals: Sherrell Gamez CNP [Primary Care Provider] - 09/30/17 10:35 am
--- NOTE | 2017-09-25 15:06 | Discharge Summary ---
- NOTES TO OUTPATIENT PROVIDER Notes to Outpatient Provider: ACS r/o; ruled out. denies every having any chest pain however did admit to palpitations. Palpitations have not returned throughout the admission. Echocardiogram, stress test, troponins all unremarkable, no studies pending Orders not resulted at time of discharge: Pending orders 09/25/17 07:00 NM milo perf SPECT multi [NM] Routine Date of Encounter: 09/25/17 Time of Encounter: 15:02 - Discharge Diagnosis (1) Palpitation Priority: Primary Status: Acute Assessment and Plan: Presented with palpitations Denies ever having any chest pain Underwent ACS rule out, ACS has been ruled out Palpitations resolved prior to admission and have not returned throughout stay No events on telemetry Echocardiogram grossly unremarkable Stress test negative for ischemia Serial Troponins negative Uneventful hospital course If palpitations return patient may benefit from Holter monitor Patient instructed to follow-up with PCP with 1-week of discharge. Additionally , she is instructed to return to the ED should her symptoms return and/or worsen. Patient verbalizes understanding denies any further questions at this time (2) Chest pain Priority: Primary Status: Acute Assessment and Plan: Denies ever having any chest pain Acute onset of palpitations EKG yesterday showing diffuse ST flattening TTE--LVEF 60-65% Normal LV chamber size and function. Mild concentric left ventricular hypertrophy. Mild left ventricular diastolic dysfunction. Normal right ventricular structure and function. No evidence of pulmonary hypertension. No significant valvular dysfunction. Pharmacologic Nuclear stress test negative for ischemia or infarct. Gated EF >70 %. Qualifiers: Chest pain type: unspecified Qualified Code(s): R07.9 - Chest pain, unspecified (3) Hypertension Priority: Secondary Status: Acute Assessment and Plan: Stable throughout stay, continue home anti-HTN medications at [facility] Qualifiers: Hypertension type: essential hypertension Qualified Code(s): I10 - Essential (primary) hypertension (4) DVT prophylaxis Priority: Secondary Status: Acute Hospital course: Ms. Moore is a 76 year old female Please see assessment and plan for hospital course Discharge discussed with: patient, nurse, area development consultant - Time Spent with Patient Total time spent providing and/or coordinating discharge services: Less than 30 minutes - Discharge Medications Home Medications: Acetaminophen/Butalbital/Caffe [Fioricet] 1 each PO Q4H PRN 09/23/17 [History] Lisinopril 30 mg PO DAILY 09/23/17 [History] Montelukast [Singulair] 10 mg PO DAILY 09/23/17 [History] Omeprazole [PriLOSEC] 20 mg PO DAILY 09/23/17 [History] Allergies/Adverse Reactions: 3 Allergy/AdvReac Type Severity Reaction Status Date / Time codeine AdvReac See Verified 12/02/14 09:51 Comments prednisone AdvReac See Verified 12/02/14 09:51 Comments Rpkvrdu-Vre-Hcp Reductase AdvReac See Verified 12/02/14 09:51 Inhibitor Comments [Statins] Date of admission: 09/23/17 18:58 Primary care physician: Sherrell Gamez CNP Consults: 09/24/17 02:25 Consult to Physician [CONS] Routine Consulting Provider: Chris Bhatia Reason for Consult: cp Call Completed: Yes Discharging clinician: Eddie Carrillo Anticipated date of discharge: 09/25/17 - Constitutional Vitals: Temp Pulse Resp BP Pulse Ox 97.6 F 61 18 151/78 98 09/25/17 11:24 09/25/17 11:24 09/25/17 11:24 09/25/17 11:24 09/25/17 11:24 General appearance: Present: A&O X 3 - Head Head exam: Present: atraumatic, normocephalic - Eye Eye exam: Present: PERRL, conjuntiva pink, sclera anicteric Pupils: Present: PERRL - Neck Neck exam general surgery: Present: supple, trachea midline. Absent: lymphadenopathy - Respiratory Respiratory exam: Present: CTAB. Absent: accessory muscle use, rales, rhonchi, wheezes - Cardiovascular Cardiovascular exam: Present: RRR, +S1, +S2. Absent: diastolic murmur, gallop, rubs, systolic murmur - GI/Abdominal GI/Abdominal exam: Present: normal bowel sounds, soft, no peritoneal signs. Absent: distended, tenderness - Extremities Exam Extremities exam: Present: warm, radial pulses palpable and symmetrical. Absent : calf tenderness, cyanotic, pedal edema - Neurological Exam Neurological exam: Present: CN II-XII intact, oriented X3, no focal deficits. Absent: pronater drift, facial droop, speech deficit - Skin Skin exam: Present: dry, intact - Patient Status Disposition: Home, Self-Care Condition: Good Functional capacity at discharge: independent ambulation Overall status at discharge: patient is back to baseline - Discharge Instructions Instructions: Chest Pain (DC) Follow Up With: Sherrell Gamez CNP [Primary Care Provider] - 09/30/17 10:35 am - Diet and Activity Activity: resume usual activities as tolerated Diet: advance to your usual diet
--- NOTE | 2017-09-26 06:35 | Electrocardiograph Report ---
[address] [place] [address] Test Date: 2017-09-24 Pat Name: Jose Antonio Moore Department: 113 Room: 3B33 Gender: F [employer]: : 1940 Requested By: Najma Dennison Order Number: [id number] Reading MD: Mick Ziegler Measurements Intervals Erwin Rate: 57 P: 43 LA: 177 QRS: -20 QRSD: 85 T: 79 QT: 423 QTc: 417 Interpretive Statements SINUS BRADYCARDIA MINIMAL VOLTAGE CRITERIA FOR LVH, CONSIDER NORMAL VARIANT Electronically Signed On 09-26-2017 6:33:56 EDT by Mick Ziegler
== END 2017-09-25 15:36 | disposition home or self-care (01) ==
LOC: 3BNU 14:06 → EMEROO 14:06 → 3BNU 20:02
PROVIDERS: ADMIT Internal Medicine Nephrology; ATTEND Internal Medicine Nephrology

== ENCOUNTER 2021-02-17 11:40 | Observation (INO) ==
[2021-02-17] MEDS ORDERED: Naloxone 0.4 MG/ML INJ IVP PRN (14:40)
[2021-02-17] MEDS ORDERED: Acetaminophen 325 MG TABLET PO PRN (14:40)
[2021-02-17] MEDS ORDERED: Ondansetron 4 MG/2 ML VIAL IVP PRN (14:40)
[2021-02-17] MEDS: *HR* Heparin 5,000 UNIT/ML VIAL SQ SCH (17:07)
[2021-02-17] MEDS: *HR* HYDROmorphone 2 MG TABLET PO PRN (17:07)
[2021-02-17] MEDS: Acetaminophen/Butalbital/CaffeineTABLET PO PRN (18:22)
[2021-02-18] MEDS: *HR* HYDROmorphone 2 MG TABLET PO PRN (00:33)
[2021-02-18 02:59] LABS: Basophils % 0.5 %; Eosinophils # 0.1 K/mcL (0.0-0.6); Eosinophils % 1.4 %; Hematocrit 34.8 % (35.3-44.9); Hemoglobin 11.2 g/dL (11.5-15.4); Immature Granulocytes % 0.3 % (0-4); Lymphocytes # 1.3 K/mcL (0.6-4.6); Mean Corpuscular HGB Conc 32.2 g/dL (31.6-35.5); Mean Corpuscular Hemoglobin 29.6 pg (28.0-33.3); Mean Corpuscular Volume 91.8 fL (83.0-100.0); Mean Platelet Volume 10.5 fL (9.4-12.4); Monocytes # 0.8 K/mcL (0.0-1.3); Monocytes % 13.2 %; Neutrophils # 4.1 K/mcL (1.6-8.9); Platelet Count 250 K/mcL (140-400); Red Blood Count 3.79 M/mcL (3.82-4.97); Segmented Neutrophils % 64.6 %; White Blood Count 6.3 K/mcL (4.3-11.1)
[2021-02-18 03:57] LABS: BUN/Creatinine Ratio 21 (6-26); Blood Urea Nitrogen 17 mg/dL (8-23); Calcium 8.4 mg/dL (8.6-10.3); Carbon Dioxide 24 mEq/L (23-29); Chloride 103 mEq/L (98-107); Glucose 106 mg/dL (70-105); Osmolality,Calculated 282 (280-300); Sodium 135 mEq/L (136-145); eGFR For African Americans > 60 (> 60); eGFR For Non-African Americans > 60 (> 60)
[2021-02-18 03:59] LABS: Thyroid Stimulating Hormone 0.772 mcIU/mL (0.340-5.600)
[2021-02-18 05:10] LABS: Folate 13.1 ng/mL (3.0-16.0)
[2021-02-18] MEDS: *HR* Heparin 5,000 UNIT/ML VIAL SQ SCH ×2 (07:14→17:52)
[2021-02-18] MEDS ORDERED: *HR* OxyCODONE Immed Rel 5 MG TABLET PO PRN (11:56)
[2021-02-18] MEDS: Acetaminophen/Butalbital/CaffeineTABLET PO PRN (15:44)
[2021-02-18] MEDS: Pregabalin 25 MG CAPSULE PO SCH (20:00)
[2021-02-19] MEDS ORDERED: Acetaminophen 325 MG TABLET PO PRN (00:59)
[2021-02-19] MEDS: Acetaminophen/Butalbital/CaffeineTABLET PO PRN (02:13)
[2021-02-19 04:04] LABS: Bilirubin,Urine Negative (Negative); Blood,Urine Small (Negative); Clarity,Urine Clear (Clear); Color,Urine Yellow (Yellow); Glucose,Urine (UA) Normal (Normal); Ketones,Urine 40 mg/dL (Negative); Leukocyte Esterase,Urine Negative (Negative); Nitrite,Urine Negative (Negative); Protein,Urine Negative (Neg-Trace); Urobilinogen,Urine Normal (Normal)
[2021-02-19 04:19] LABS: RBC,Urine 0-3 per hpf (0-3)
[2021-02-19] MEDS: *HR* Heparin 5,000 UNIT/ML VIAL SQ SCH (08:43)
[2021-02-19] MEDS: Pregabalin 25 MG CAPSULE PO SCH (08:43)
[2021-02-19] MEDS ORDERED: hydroCHLOROthiazide 25 MG TABLET PO SCH (09:00)
[2021-02-19] MEDS ORDERED: lisinopriL 20 MG TABLET PO SCH (09:00)
[2021-02-19 11:08] VITALS: BP 122/79; PULSE 90; TEMP 97.6; O2SAT 96
== END 2021-02-19 12:21 | disposition home health service (06) ==
LOC: 3NENU → SUATTDRO 14:10
PROVIDERS: ADMIT Pharmacist; ATTEND Family Medicine